=== PATIENT | male | born 1985 | race Caucasian/White ===

== ENCOUNTER 2021-04-10 10:56 | Emergency (ER) | payer BC, SELFPAY ==
--- NOTE | 2021-04-10 11:00 | ED.URI ---
HPI - URI/Sore Throat General Chief Complaint: Upper Respiratory Infection Stated Complaint: fever/chest congestion/chills/ears clogged Time Seen by Provider: 04/10/21 11:00 Source: patient and RN notes reviewed History of Present Illness HPI Narrative: Patient is a 35-year-old male who presents the urgent care with complaints of fever, chest congestion, intermittent sore throat and clogged ears . Patient states that his parents had the same symptoms approximately 2 weeks ago and he was tested for Covid at that time, nonsymptomatic, and everyone's Covid test were negative. Patient states his symptoms started approximately 5 days ago and he has been taking ibuprofen for the fevers as well as Mucinex and Claritin-D. Patient states his last dose of ibuprofen was a couple hours ago. States his temperature has gotten up to 102 Fahrenheit. Denies of any shortness of breath except for exertion. No other acute complaints. No acute distress noted. Patient aware of the plan of care. Some parts of this dictation were generated by voice recognition software and may contain typographical and/or grammatical inaccuracies. Related Data Allergies Allergy/AdvReac Type Severity Reaction Status Date / Time Pertussis Vaccines Allergy Unknown Verified 04/10/21 11:04 Review of Systems Review of Systems: Narrative: CONSTITUTIONAL: Reports of fever, chills, sweats EYES: Denies visual changes, redness, or discharge. ENT: Reports of bilateral otalgia, intermittent sore throat and congestion CARDIOVASCULAR: Denies chest pain, palpitations, or edema. RESPIRATORY: Reports of nonproductive cough with chest congestion GASTROINTESTINAL: Denies abdominal pain, nausea, vomiting, or diarrhea. GENITOURINARY: Denies dysuria or hematuria. SKIN: Denies rash or itching. MUSCULOSKELETAL: Denies back pain, joint pain, or myalgia. NEUROLOGIC: Denies headache, numbness, or weakness. All other systems reviewed are negative, except as documented in HPI. PMFSH Comments At the time of my signature, I reviewed and agree with the nursing past medical, surgical, social, and family history. There is no relevant family history pertinent to the patient complaint. Exam Narrative: Exam Narrative: GENERAL: This is a well-nourished, well-developed patient, in no apparent distress. HEAD: normocephalic, atraumatic. Mild frontal sinus tenderness EYES: PERRL. Sclera clear/white. Vision is grossly intact. EARS: External ears normal, auditory canals clear and without drainage, TMs normal without perforation. Hearing grossly intact. NOSE: External nose normal with no obvious nasal discharge, nares without redness, clear rhinorrhea. THROAT: Mucous membranes moist, posterior pharynx clear. Mild postnasal drainage NECK: Neck supple CARDIOVASCULAR: Regular rate and rhythm without murmurs, gallops, or rubs. RESPIRATORY: Clear to auscultation. Breath sounds equal bilaterally. No wheezes, rales, or rhonchi. SKIN: warm, intact with no suspicious lesions or rash, good texture and turgor. NEURO: awake, alert, and oriented to person, place and time. There were no obvious focal neurologic abnormalities. EXTREMITIES: No clubbing, cyanosis, or edema. Course Vital Signs Vital signs: Vital Signs Temperature 97.0 F L 04/10/21 11:02 Pulse Rate 81 04/10/21 11:02 Respiratory Rate 16 04/10/21 11:02 Blood Pressure 149/90 H 04/10/21 11:02 Pulse Oximetry 100 04/10/21 11:02 Temperature 97.0 F L 04/10/21 11:02 Pulse Rate 81 04/10/21 11:02 Respiratory Rate 16 04/10/21 11:02 Blood Pressure 149/90 H 04/10/21 11:02 Pulse Oximetry 100 04/10/21 11:02 Reviewed?patient is informed that they may have pre-hypertension or hypertension based on a blood pressure reading in the department. I recommend the patient call the primary care provider listed on their discharge instructions or a physician of their choice this week to arrange follow-up for further evaluation of possible pre-hyperten
[2021-04-10 11:02] VITALS: BP 149/90; PULSE 81; RESP 16; TEMP 36.1; O2SAT 100
== END 2021-04-10 11:29 | disposition home or self-care (01) ==
PROVIDERS: Emergency Provider Nurse Practitioner Family
DX: R05 Cough (principal); J06.9 Acute upper respiratory infection, unspecified
CPT/HCPCS: 87081; 87804; 87880; 99213; G0463

== ENCOUNTER 2021-06-25 09:02 | Outpatient (RCR) | payer BC, SELFPAY ==
[2021-06-25] MEDS: FAMOTIDINE 20 MG TABLET PO (14:07)
[2021-06-25] MEDS: ACETAMINOPHEN 325 MG TABLET 650 MG PO (14:07)
[2021-06-25] MEDS: diphenhydrAMINE HCl CAP 25 MG CAPSULE PO (14:07)
[2021-06-25 14:15] VITALS: BP 127/68; PULSE 78; RESP 20; TEMP 37.4; O2SAT 100
[2021-06-25 15:33] VITALS: BP 127/68
--- NOTE | 2021-06-26 08:27 | PC.NURSE ---
Called patient to follow-up regarding antibody infusion yesterday. Patient states they are feeling much better than before treatment and denies any side effects at this time.
== END 2021-06-25 16:00 | disposition home or self-care (01) ==
LOC: AMCINF 09:02
PROVIDERS: Visit Provider Internal Medicine Hematology & Oncology
DX: Z23 Encounter for immunization (principal); U07.1 COVID-19; J44.9 Chronic obstructive pulmonary disease, unspecified
CPT/HCPCS: A9270; J7050; M0243